=== PATIENT | female | born 1955 | race Caucasian/White ===

== ENCOUNTER 2018-03-02 19:31 | Emergency (ER) | payer MEDICARE, SELFPAY ==
[2018-03-02] VITALS (7 sets, daily range): BP systolic 146–176; BP diastolic 79–99; PULSE 84–108; RESP 16–22; TEMP 37.4; O2SAT 96–99; BMI 31.7
[2018-03-02] MEDS: 0.9% Normal Saline 1,000 ML 999 ML IV (21:10)
--- NOTE | 2018-03-02 21:15 | RAD_ITS ---
STUDY: X-RAY CHEST REASON FOR EXAM: Female, 62 years old. Cold symptoms x2 weeks fever chills weakness TECHNIQUE: PA and lateral views of the chest. COMPARISON: January 13, 2015 chest x-ray FINDINGS: There are hazy linear markings in the lung bases greater than prior study. On the lateral view there is a visualized nodule measuring 1.2 x 1.3 cm. There is no demonstrated pleural abnormality. Normal size heart. Normal mediastinum and alanna. Normal visualized pulmonary arteries. Normal visualized aortic arch and descending thoracic aorta. There are diffuse degenerative changes of the visualized thoracic spine. Normal visualized ribs, clavicles, and shoulders. There is no demonstrated abnormality of the visualized soft tissue structures of the upper abdomen. RAD/Chest PA and Lateral IMPRESSION: Streaky linear densities in the lung bases suggesting possible scarring possibly atypical infiltrates. The lateral view shows a possible spiculated nodule measuring 1.2 x 1.3 cm. Not definitively seen on the PA view. Recommend CT scan of the chest. Electronically Signed: Jie Perera MD at 21:48 EDT Tel , Service support ,
[2018-03-02 21:17] LABS: Absolute Lymphocyte Count 1.78 X10^3/ul (0.83-4.51); Absolute Neutrophil Count 9.9 X10^3/uL (2.0-7.7); Basophil# 0.03 X10^3/uL; Basophil% 0.2 % (0-1); Eosinophil# 0.05 X10^3/uL; Eosinophils% 0.4 % (0-5); Hematocrit 39.9 % (37-47); Hemoglobin 13.1 g/dl (12.0-15.0); Lymphocyte # 1.78 X10^3/ul (4.0); Lymphocyte % 14.1 % (19-41); Mean Corp Hgb Conc 32.8 g/gl (32-36); Mean Corpuscular Hgb 27.9 pg (27.0-32.0); Mean Corpuscular Volume 85.1 fL (81-99); Mean Platelet Vol. 10.7 fl (6.2-12.0); Monocyte# 0.85 X10^3/uL; Monocyte% 6.8 % (0-10); Neutrophil # 9.86 X10^3/uL (2.7-7.7); Neutrophil % 78.3 % (47-70); Platelet Count 267 K/mm3 (150-450); RBC Distribution Width CV 13.6 % (11.6-14.6); Red Blood Count 4.69 M/mm3 (4.2-5.4); White Blood Count 12.6 K/mm3 (4.4-11.0)
[2018-03-02 21:19] LABS: POSITIVE COUNT NO; POSITIVE DIFFERENTIAL NO; POSITIVE MORPHOLOGY NO
[2018-03-02] MEDS: Ipratropium/Albuterol Sulfate 3 ML AMPUL.NEB INHALATION (21:35)
[2018-03-02 22:04] LABS: Anion Gap 10 (5-15); BUN 12 mg/dL (7-18); BUN/Creat Ratio 16.1 RATIO (10-20); Calcium,Total 8.8 mg/dL (8.5-10.1); Chloride 102 mmol/L (98-107); Creatinine, Serum 0.74 mg/dL (0.55-1.02); EST Glomerular Filtration Rate 83 mL/min (>60); Est Glom Filt Rate - Afr Amer 101 mL/min (>60); Estimated Creatinine Clearance 67.19 ml/min; Glucose 134 mg/dL (74-106); Potassium 4.4 mmol/L (3.5-5.1); Sodium Level 138 mmol/L (136-145)
--- NOTE | 2018-03-02 22:25 | CT_ITS ---
STUDY: CT CHEST WITHOUT CONTRAST REASON FOR EXAM: Female, 62 years old. Symptoms 2 weeks weakness fever chills RADIATION DOSAGE (If Supplied By Facility): CTDIvol = ( 14.43 ) mGy, DLP = ( 450.58 ) mGycm TECHNIQUE: Transaxial imaging was performed without the administration of intravenous contrast material. Multiplanar coronal and sagittal images were reformatted. Individualized dose optimization techniques were used for this CT. COMPARISON: Chest x-ray March 02, 2018 FINDINGS: Within the superior aspect of the right upper lobe there is a focal nodular density which may represent the density seen on the chest x-ray. It measures 1.2 x 0.7 cm. Within the anterior aspect of the right lower lobe there is a focal consolidation within air bronchogram. There is a calcified granuloma in the superior aspect of the left upper lobe. There are minimal groundglass opacities within the lung bases. There is no demonstrated pleural abnormality. There is borderline cardiac enlargement. There is a right side paratracheal lymph node measuring 7.0 mm. Is calcification in the left hilum compatible with old granulomatous disease. Normal unenhanced pulmonary arteries. Normal aorta arch and descending thoracic aorta. There are multi-level degenerative changes of the thoracic spine. There is calcification in the liver and spleen compatible with old granulomatous disease. There is a small hiatal hernia mild thickening of the wall of the esophagus in its entirety suggestive of esophagitis. CT/Chest without Contrast IMPRESSION: Findings are consistent with anterior segment right upper lobe pneumonia recommend follow to clearing. There is a nodule versus focus of inflammation in the mid aspect of the right upper lobe measuring 1.2 x 0.7 cm for which a follow-up will be warranted. Minimal ground glass opacity suggesting possible mild edema. Degenerative change thoracic spine. Suspicious for esophagitis. N.B. : The above information has been verbally conveyed by Jie Perera MD to Jaya Cat , Referring Physician, on 03/02/2018 23:37:05 (ET). Electronically Signed: Jei Perera MD at 23:34 EDT Tel , Service support , N.B. : The above information has been verbally conveyed by Jie Perera MD to Jaya Cat , Referring Physician, on 03/02/2018 23:37:05 (ET).
--- NOTE | 2018-03-02 23:50 | ED.DCSUM_ITS ---
- ER Visit Summary Date of Service: 03/02/18 Chief Complaint: Cough History of Present Illness: The patient is a [address] Sukumar Velazquez III. She reports that she has a cough began approximately 1 week ago. Is productive of a small amount of thick, dark, yellow sputum without blood. She had subjective fever and chills. She complains of sore throat is 6 out of 10 severity. She has had moderate shortness of breath and has been wheezing. Physical Examination: Vitals: Stable. Afebrile. General: Well-nourished and well-developed. Head: Normocephalic atraumatic. Neck: Supple, no lymphadenopathy. No JVD. Nontender. Cardiovascular: Regular rate and rhythm. No murmurs. Respiratory: No respiratory distress. Clear to auscultation bilaterally. Moderate tenderness palpation over the upper chest on the right which does reproduce her pain. Abdominal: Soft, nontender, nondistended, normal bowel sounds. No guarding, rebound, or peritoneal signs. Back: Nontender. Extremities: Nontender, no edema. Skin: Normal color, no rash. Neurologic: Alert and oriented ?3. Cranial nerves II through XII are intact. Normal strength and sensation. Psych: Normal affect. Test Results: CBC is marked for white count of 12.6 with 77 neutrophils and 14 lymphocytes. Chem-7 is more for glucose 134. Chest x-ray shows scarring versus infiltrates at the bases bilaterally. There is 1.2 x 1.3 cm spiculated nodule seen only on the lateral. Recommend CT chest. Clinical Impression(s) from Imaging Studies Chest CT 03/02/18 22:25 IMPRESSION: Findings are consistent with anterior segment right upper lobe pneumonia recommend follow to clearing. There is a nodule versus focus of inflammation in the mid aspect of the right upper lobe measuring 1.2 x 0.7 cm for which a follow-up will be warranted. Minimal ground glass opacity suggesting possible mild edema. Degenerative change thoracic spine. Suspicious for esophagitis. Emergency Department Course and Treatment: Patient was treated with albuterol aerosol. She is given Levaquin p.o. Treatment Plan: Patient be discharged on albuterol MDI. Placed on Levaquin for a week. Instructed follow-up Dr. Sukumar Velazquez III in 5-7 days for another exam. Return to the emergency department for any worsening symptoms. Disposition: To home in improved and stable condition. Impression: 1. Pneumonia, community-acquired. 2. Right upper lobe nodule 1.2 x 0.7 cm. This note was generated with [employer] dictation software. It may contain incorrect words, spelling, and punctuation that were not noted in review of the chart prior to signing ED Disposition - Plan for ED Patient: Chief Complaint: Cold Sx Instructions: ED Pneumonia Adult, ED Nodule Solitary Pulmonary Prescriptions: Albuterol Aerosols [Ventolin Aerosols] 2.5 mg INHALATION Q4H PRN #25 vial Levofloxacin [Levaquin] 750 mg PO DAILY #7 tablet Prednisone [Deltasone] 60 mg PO DAILY #15 tab Referrals: Sukumar Velazquez III, MD [Primary Care Provider] - 5-7 Days
[2018-03-03] MEDS: levoFLOXacin 750 MG Tablet PO (00:04)
[2018-03-03] MEDS: predniSONE 20 MG Tablet 60 MG PO (00:04)
[2018-03-03] MEDS: Albuterol 2.5 MG/3 ML VIAL.NEB. INHALATION (00:14)
[2018-03-03 00:15] VITALS: PULSE 94; RESP 18
== END 2018-03-03 00:31 | disposition home or self-care (01) ==
LOC: ED 21:15
PROVIDERS: Emergency Provider Emergency Medicine; Family Provider Family Medicine; PCP Family Medicine
DX: J18.9 Pneumonia, unspecified organism (principal); R91.1 Solitary pulmonary nodule; R06.2 Wheezing; Z87.820 Personal history of traumatic brain injury
CPT/HCPCS: 71046; 71250; 80048; 85025; 94640; 99284; J7030; A4216

== ENCOUNTER 2019-03-27 14:11 | Emergency (ER) | payer MEDICARE, SELFPAY ==
[2019-03-27 14:13] VITALS: BP 160/98; PULSE 85; RESP 16; TEMP 37.2; BMI 32.5
--- NOTE | 2019-03-27 14:33 | CT_ITS ---
STUDY: CT BRAIN WITHOUT CONTRAST REASON FOR EXAM: Female, 63 years old. Headache and swollen left eye. Prior head injury. RADIATION DOSAGE (If Supplied By Facility): CTDIvol = ( 4499 ) mGy, DLP = ( 914.22 ) mGycm TECHNIQUE: Transaxial CT imaging of the brain was performed without administration of intravenous contrast material. Individualized dose optimization techniques were used for this CT. COMPARISON: No relevant priors. FINDINGS: Normal soft tissue structures. There are chronic right facial fractures including the zygomatic arch, the anterior and posterolateral strauss of the right maxillary sinus, as well as lateral wall and floor of the right orbit. Metal fixation hardware noted along the inferolateral margin of the right maxillary sinus and along the frontozygomatic process. There is mild depression of the right orbital floor, and a band of soft tissue density extends through the lateral aspect of the right axillary sinus. Normal remaining paranasal sinuses. Normal size ventricles and extra-axial spaces for the patient's age. Normal white matter tracts of the cerebral hemispheres. Normal basal ganglia and thalami. Normal brainstem. Normal cerebellum. There is no intracranial hemorrhage. There are no findings of an acute ischemic infarction. CT/Brain/Head without Contrast IMPRESSION: Chronic right facial fractures, as described, with chronic mild depression of the right orbital floor. No acute intracranial pathology. Electronically Signed: Addy Cesar MD at 15:48 EDT , Service support ,
[2019-03-27] MEDS: Ondansetron 4 MG/2 ML Vial IV (14:50)
[2019-03-27] MEDS: Ketorolac 30 MG/ML Syringe IV (14:50)
[2019-03-27] MEDS: 0.9% Normal Saline 1,000 ML 150 ML IV (14:50)
[2019-03-27] MEDS: MethylPREDNISolone 125 MG/2 ML Vial IV (14:50)
[2019-03-27 15:02] LABS: Absolute Lymphocyte Count 0.99 X10^3/ul (0.83-4.51); Absolute Neutrophil Count 5.4 X10^3/uL (2.0-7.7); Basophil# 0.02 X10^3/uL; Basophil% 0.3 % (0-1); Eosinophil# 0.03 X10^3/uL; Eosinophils% 0.4 % (0-5); Hematocrit 41.4 % (37-47); Hemoglobin 14.3 g/dl (12.0-15.0); Lymphocyte # 0.99 X10^3/ul (4.0); Lymphocyte % 13.9 % (19-41); Mean Corp Hgb Conc 34.5 g/gl (32-36); Mean Platelet Vol. 10.4 fl (6.2-12.0); Monocyte# 0.71 X10^3/uL; Neutrophil # 5.36 X10^3/uL (2.7-7.7); Neutrophil % 75.3 % (47-70); POSITIVE COUNT NO; POSITIVE DIFFERENTIAL NO; Platelet Count 224 K/mm3 (150-450); RBC Distribution Width SD 40.9 fl (35.1-43.9); Red Blood Count 5.11 M/mm3 (4.2-5.4); White Blood Count 7.1 K/mm3 (4.4-11.0)
[2019-03-27 15:03] LABS: POSITIVE MORPHOLOGY NO
[2019-03-27] MEDS: Acyclovir 800 MG Tablet PO (15:09)
[2019-03-27 15:15] LABS: Anion Gap 7 (5-15); BUN 10 mg/dL (7-18); BUN/Creat Ratio 11.6 RATIO (10-20); Calcium,Total 9.1 mg/dL (8.5-10.1); Chloride 97 mmol/L (98-107); Creatinine, Serum 0.86 mg/dL (0.55-1.02); EST Glomerular Filtration Rate 70 mL/min (>60); Est Glom Filt Rate - Afr Amer 85 mL/min (>60); Estimated Creatinine Clearance 57.07 ml/min; Glucose 144 mg/dL (74-106); Potassium 3.6 mmol/L (3.5-5.1); Sodium Level 131 mmol/L (136-145)
--- NOTE | 2019-03-27 16:12 | ED.DCSUM_ITS ---
- ER Visit Summary Date of Service: 03/27/19 Chief Complaint: Headache, nausea and vomiting History of Present Illness: The patient is a 63 F with headache over the top of her head for the last 3 or 4 days. She noted her left eyelid to be swollen. She is a history of a TBI but states she does not get frequent headaches. She denies any recent head injury. She does report chronic dizziness from her prior TBI. Physical Examination: Blood pressure is 160/98, otherwise vitals normal. Patient seen on the side of bed no acute distress. She is nontoxic appearing. Head and neck examination was left upper eyelid edema. There is no conjunctival injection. Left TM is clear. There is a rash noted to her left forehead and into the hairline consistent with shingles. Heart is regular rate and rhythm. Lung sounds are clear. Abdomen is soft and nontender. Test Results: CT head reveals chronic changes only. CBC is normal. Chemistry studies reveal a sodium of 131 and chloride 97. Glucose is 144. Emergency Department Course and Treatment: Patient was given Toradol, Zofran, Solu-Medrol, and acyclovir. On repeat evaluation patient is resting comfortably. She will be treated with prednisone, acyclovir, Thayer, Zofran. She is to follow-up with her primary care physician within 1 week. Treatment Plan: [] Disposition: Discharge Impression: 1. Shingles left V1 distribution 2. Vomiting, improved This note was generated with [employer] dictation software. It may contain incorrect words, spelling, and punctuation that were not noted in review of the chart prior to signing ED Disposition - Plan for ED Patient: Disposition: Home or Assisted Living Instructions: ED Shingles Prescriptions: Hydrocodone Bitart/Apap 5-325 [Thayer 5MG-325MG] 1 tablet PO Q6H PRN PRN 3 Days #10 tablet PRN Reason: Pain Ondansetron [Zofran Odt] 4 mg PO Q8H PRN PRN #10 tablet PRN Reason: Nausea Acyclovir [Zovirax] 800 mg PO 5X/DAY #25 tablet Prednisone 10 mg PO UD #33 tablet Referrals: Sukumar Velazquez III, MD [Primary Care Provider] - 1 Week
[2019-03-27 16:33] VITALS: BP 173/90; PULSE 73; RESP 16; O2SAT 94
--- NOTE | 2019-03-27 16:33 | ED.RN ---
IV DC'ED, CATHETER INTACT, SMALL GAUZE DRESSING PLACED. DISCHARGE INSTRUCTIONS GIVEN TO AND REVIEWED WITH PATIENT, PATIENT DENIES QUESTIONS OR CONCERNS AND VOICES UNDERSTANDING OF DISCHARGE INSTRUCTIONS. PT AMBULATES OUT OF ROOM WITHOUT DIFFICULTY.
== END 2019-03-27 16:39 | disposition home or self-care (01) ==
PROVIDERS: Emergency Provider Emergency Medicine; Family Provider Family Medicine; PCP Family Medicine
DX: B02.9 Zoster without complications (principal); I10 Essential (primary) hypertension; R11.2 Nausea with vomiting, unspecified; Z79.899 Other long term (current) drug therapy; Z87.820 Personal history of traumatic brain injury
CPT/HCPCS: 70450; 80048; 85025; 96361; 96374; 96375; 99283; J7030; J2405

== ENCOUNTER → 2021-07-15 | Outpatient (CLI) | payer MEDICARE, SELFPAY | END | disposition home or self-care (01) | PROVIDERS: PCP Family Medicine; Referring Provider Physician Assistant; Visit Provider Physician Assistant | DX: Z20.822 Contact with and (suspected) exposure to COVID-19 (principal) | CPT/HCPCS: 87635; U0005; U0003 ==

== ENCOUNTER 2022-09-24 21:33 | Emergency (ER) | payer MEDICARE, SELFPAY ==
[2022-09-24 21:34] VITALS: BP 189/90; PULSE 89; RESP 18; TEMP 36.7; O2SAT 97; BMI 34.3
--- NOTE | 2022-09-24 23:23 | ED.VIS.BACK ---
HPI History of Present Illness Chief Complaint: Back Detail of Chief Complaint: Back pain that started about a week and a half ago Informant: patient Onset/Context/Timing Current Severity: 02/25 Narrative Narrative: Patient presents with back pain*about a week and a half ago. Patient states that she thinks she overdid it doing some cleaning and being bent over. She does have history of some arthritis. Patient states the pain became more sharp today intermittently with certain movements. She was advised to be evaluated. She denies any pain down her legs. She denies numbness or tingling in her legs. She denies loss of bowel or bladder function. She denies weakness in extremities. She denies direct trauma. Patient does have a remote history of a herniated disc at L4 525 years ago. [facility] Medical History (Updated 09/24/22 @ 23:[address] Karmen Arora, ) Dizziness Herniated disc HTN (hypertension) TBI (traumatic brain injury) Home Medications acyclovir 800 mg tablet 800 mg PO 5X/DAY ##25 03/27/19 [Rx Last Taken Unknown] lisinopril 5 mg tablet (Zestril) 5 mg PO DAILY 03/27/19 [History Last Taken 03/22/19] ondansetron 4 mg disintegrating tablet 4 mg PO Q8H PRN PRN Nausea #10 tabs 03/27/19 [Rx Last Taken Unknown] prednisone 10 mg tablet 10 mg PO UD #33 tabs 03/27/19 [Rx Last Taken Unknown] cyclobenzaprine 10 mg tablet 10 mg PO TID PRN Muscle Spasm #20 TABLETS 09/24/22 [Rx Last Taken Unknown] Allergy/AdvReac Type Severity Reaction Status Date / Time No Known Allergies Allergy Verified 09/24/22 21:37 Social History Smoking Status: Never smoker ROS ROS ED Review of Systems ROS Unobtainable: other Constitutional Constitutional ED: Reports lethargy; Denies chills, fever(s), sweats or weight loss Eyes Eyes: Denies blurry vision, change in vision or diplopia ENT ENT ED: Denies rhinorrhea or sore throat Cardiovascular Cardiovascular: Denies chest pain, orthopnea or racing heartbeat Respiratory/Chest Respiratory/Chest: Denies cough, dyspnea, dyspnea on exertion, orthopnea or sputum Gastrointestinal Gastrointestinal: Denies abdominal pain, diarrhea, nausea or vomiting Genitourinary Genitourinary ED: Denies dysuria, hematuria or urinary frequency Musculoskeletal Musculoskeletal: Reports back pain; Denies arthralgias, myalgias or neck pain Integumentary Denies abscess, Abrasions or rash Neurologic Neurologic: Denies headache(s) or weakness Psychiatric Psychiatric: Denies anxiety, depression or suicidal thoughts Endocrine Endocrinology: Denies polydipsia, polyphagia or polyuria Hematologic/Lymphatic Hematologic/Lymphatic: Denies easy bleeding, easy bruising or lymphadenopathy Allergic/Immunologic Allergic/Immunologic ED: Denies mouth swelling, tongue swelling or urticaria EXAM Physical Exam Const Vital Signs: 09/24/22 21:34 Temperature 98.1 F Temperature Source Temporal Pulse Rate 89 Respiratory Rate 18 Blood Pressure 189/90 H Blood Pressure Mean 123 Pulse Ox 97 Oxygen Delivery Method Room Air Positive well nourished and well developed General Appearance ED: well developed and NAD HEENT Reports TM's clear and moist mucous membranes normocephalic and atraumatic; Negative for trauma or tenderness Tympanic Membrane ED: Yes TM's clear Eyes PERRL and EOMs intact bilaterally General Eye ED: Negative for pale conjunctiva or scleral icterus Neck no lymphadenopathy, supple and no JVD General: Negative for tenderness Chest Wall inspection of chest normal and palpation of chest normal Chest: Negative for tenderness Resp normal respiratory effort and clear to auscultation bilaterally Effort and Inspection: Negative for respiratory distress or pain with movement Auscultation: Negative for rhonchi, wheezes or diminished lung sounds Cardio regular rate, regular rhythm, S1 normal heart sound, S2 normal heart sound and no murmurs Peripheral Pulses: pulses 2+ throughout GI normal to inspection, nondistended, normoactive bowel sounds, soft to palpation, non-tender, non-distended and no masses Back/Spine no CVA tenderness and no thoracic nor lumbar tenderness Back/Spine Narrative: Patient has tenderness palpation over the left lumbar paraspinal musculature that seems to reproduce her pain. No masses palpated. She has no tenderness over the thoracic or lumbar spine. She has negative straight leg raises. Deep tendon reflexes are plus 2 out of 4 bilaterally at the patella Achilles. Patient has normal L5 extension bilaterally. Neurovascularly intact. Extremity normal to inspection General Extremety ED: Negative for edema General Extremity: Negative for edema Neuro oriented x3, CN's II-XII intact bilaterally, no sensory deficits noted and gait normal Sensorium / Orientation: awake, alert, oriented to person, oriented to place and oriented to time Motor Exam: strength 5/5 throughout and strength abnormal Psych mental status grossly normal Skin no rashes or lesions noted and no wounds MDM MDM MDM Narrative Medical decision making narrative: Patient with atraumatic back pain. I do not feel any imaging is indicated and she is comfortable with this. I suspect more likely muscle spasm. Patient has a prescription for naproxen at home and she will take that and does not anything stronger for pain. I will write her for Flexeril. Patient to follow-up with her primary care physician within next 5 to 7 days. She is advised to return if worsening pain, weakness in extremities, change in bowel or bladder function, or condition should worsen anyway. There are no red flag symptoms of cauda equina. Discharge Plan Triage Chief Complaint: Back ED Provider: Karmen Aroar Dx/Rx/DC Orders Clinical Impression: Lumbar strain, Back pain Instructions: ED Back Spasm, No Trauma Prescriptions: New cyclobenzaprine [cyclobenzaprine] 10 mg tablet 10 mg PO TID PRN (Reason: Muscle Spasm) Qty: 20 0RF No Action lisinopril [Zestril] 5 MG tablet 5 mg PO DAILY acyclovir 800 MG tablet 800 mg PO 5X/DAY Qty: 25 0RF prednisone 10 MG tablet 10 mg PO UD Qty: 33 0RF Rx Instructions: Take 4 tablets daily for 3 days, then 3 daily for 3 days, then 2 daily for 3 days, then 1 a day for 3 days then 1 QOD for 3 doses. ondansetron 4 MG tablet 4 mg PO Q8H PRN PRN (Reason: Nausea) Qty: 10 0RF Primary Care Provider: Dandre Myers Referrals: Dandre Myers MD [Primary Care Provider] - 5-7 Days Disposition Disposition: Home, Self Care
[2022-09-24] MEDS: cycloBENZAPRine HCl 10 MG Tablet PO (23:32)
== END 2022-09-24 23:34 | disposition home or self-care (01) ==
PROVIDERS: Emergency Provider Emergency Medicine; PCP Family Medicine; Visit Provider Emergency Medicine
DX: S39.012A Strain of muscle, fascia and tendon of lower back, initial encounter (principal); I10 Essential (primary) hypertension; Z87.820 Personal history of traumatic brain injury; Z79.899 Other long term (current) drug therapy
CPT/HCPCS: 99283

== ENCOUNTER 2023-10-09 23:14 | Emergency (ER) | payer MEDICARE, SELFPAY ==
--- NOTE | 2023-10-09 00:12 | RAD_ITS ---
INDICATION: Cough EXAMINATION/TECHNIQUE: X-RAY - XR Chest 2 Views COMPARISON: CT ChestMay 2017 FINDINGS: LINES/DEVICES: None. LUNGS: No consolidation, edema or effusion. No pneumothorax. Calcified granuloma in the left upper lobe. MEDIASTINUM AND CARDIOVASCULAR STRUCTURES: Cardiac silhouette not enlarged. Central airways and mediastinal contour are unremarkable. BONES AND SOFT TISSUES: Unremarkable. RAD/Chest PA and Lateral IMPRESSION: No radiographic evidence of acute cardiopulmonary disease. Electronically Signed: Mary Mckeon MD at 0:57 EST ,
[2023-10-09 23:15] VITALS: BP 190/87; PULSE 89; RESP 16; TEMP 36.6; O2SAT 100; BMI 34.3
--- NOTE | 2023-10-09 23:36 | EX.ED.VIS.UR ---
HPI HPI - URI History of Present Illness Chief Complaint: Cough Informant: patient Onset/Context/Timing Onset: Days (4) Context: Gradual Onset Timing: Continuous Quality: Tightness Location: Right chest Worsened by: - (Nothing) Relieved by: - (Nothing) Associated Symptoms Associated Symptoms: Positive for Nasal Congestion, Headache, Shortness of Breath, Chest Pain and Productive Cough (Clear sputum); Negative for Sinus Pressure, Myalgias, Nausea, Vomiting, Diarrhea, Nonproductive cough or Hemoptysis Narrative Narrative: Patient presents with cough and congestion that has been getting worse over the last 4 days. Patient states she has some tightness in her right upper chest. Patient states nothing makes it better nothing makes it worse. Patient admits to some nasal congestion headache. Patient states she is coughing up some clear sputum. Patient states she will feel short of breath at times. Patient states she was diagnosed with COVID-19 last month. Patient states she never got over it. Patient denies any fevers or chills. Patient denies any nausea or vomiting. ROS [facility] ED Constitutional Constitutional ED: Denies chills or fever(s) Eyes Eyes: Denies blurry vision or change in vision ENT ENT ED: Reports rhinorrhea; Denies sore throat Cardiovascular Cardiovascular: Reports chest pain; Denies palpitations Respiratory/Chest Respiratory/Chest: Reports cough, dyspnea and sputum Gastrointestinal Gastrointestinal: Denies nausea or vomiting Genitourinary Genitourinary ED: Denies dysuria or hematuria Musculoskeletal Musculoskeletal: Reports back pain and neck pain Integumentary Denies abscess or rash Neurologic Neurologic: Reports headache(s); Denies weakness Allergic/Immunologic Allergic/Immunologic ED: Denies mouth swelling or urticaria [facility] Medical History (Updated 10/10/23 @ 01:[address] Blayne Fernandes, DO) Dizziness Herniated disc HTN (hypertension) TBI (traumatic brain injury) Home Medications acyclovir 800 mg tablet 800 mg PO 5X/DAY #25 TABLETS 03/27/19 [Rx Last Taken Unknown] lisinopril 5 mg tablet (Zestril) 5 mg PO DAILY 03/27/19 [History Last Taken 03/22/19] ondansetron 4 mg disintegrating tablet 4 mg PO Q8H PRN PRN Nausea #10 tabs 03/27/19 [Rx Last Taken Unknown] prednisone 10 mg tablet 10 mg PO UD #33 tabs 03/27/19 [Rx Last Taken Unknown] cyclobenzaprine 10 mg tablet 10 mg PO TID PRN Muscle Spasm #20 TABLETS 09/24/22 [Rx Last Taken Unknown] benzonatate 200 mg capsule 200 mg PO TID PRN cough #14 caps 08/23/23 [Rx Last Taken Unknown] dexamethasone 6 mg tablet 6 mg PO DAILY #5 tabs 08/23/23 [Rx Last Taken Unknown] Allergy/AdvReac Type Severity Reaction Status Date / Time No Known Allergies Allergy Verified 10/09/23 23:17 Surgical History (Updated 10/09/23 @ 23:[address] Blayne Fernandes, ) Hx of facial fracture repair Social History Smoking Status: Never smoker EXAM Physical Exam Const Vital Signs: 10/09/23 23:15 10/09/23 23:51 Temperature 97.8 F Temperature Source Temporal Pulse Rate 89 92 Respiratory Rate 16 18 Respiratory Pattern Normal Blood Pressure 190/87 H Blood Pressure Mean 121 Pulse Ox 100 Oxygen Delivery Method Room Air Positive well nourished and well developed General Appearance ED: well developed and NAD HEENT Reports moist mucous membranes Neck supple and no JVD Resp normal respiratory effort Auscultation: rhonchi right upper and right lower Cardio Rate: regular rate Rhythm: regular rhythm GI non-tender and non-distended Palpation: soft Neuro oriented x3, CN's II-XII intact bilaterally and no sensory deficits noted Sensorium / Orientation: alert Motor Exam: strength 5/5 throughout Psych mental status grossly normal MDM MDM MDM Narrative Medical decision making narrative: Differential diagnosis includes pneumonia, COVID-19 infection, influenza infection, viral bronchitis, and a viral upper respiratory infection. Chest x-ray will be obtained to assess for pneumonia pneumothorax. COVID-19 rapid antigen will be obtained to assess for COVID-19 infection. Influenza A and influenza B antigens will be obtained to assess for influenza infection. Lab Data Lab results narrative: COVID-19 rapid antigen was reviewed and was negative. Influenza A and influenza B antigens were reviewed and were negative. Radiography Chest X-Ray - ED: 1 View, Read by ED Physician, Read by Radiologist and No Acute Disease Diagnostic Testing: Clinical Impression(s) from Imaging Studies Chest X-Ray 10/09/23 00:12 IMPRESSION: No radiographic evidence of acute cardiopulmonary disease. Electronically Signed: Mary Mckeon MD at 0:57 EST , Portable 1 view chest x-ray was obtained. On my independent interpretation, lung argueta are clear. There is normal cardiac silhouette. Bony thorax is normal. There is no acute process noted. Radiologist also interpreted the x-ray and agrees. Treatment and Re-Evaluation Narrative: Patient was given a DuoNeb aerosol here. Patient was advised of her findings. Patient was advised that this is most likely a viral upper respiratory infection. Patient was instructed to drink plenty of fluids. Patient was instructed to take Tylenol or ibuprofen as needed for any aches or fevers. Patient was instructed to follow-up with her primary care physician in 5 to 7 days. Patient was instructed return if worse in any way. Patient understood and was agreeable with the plan. All questions were answered. Discharge Plan Triage Chief Complaint: Cough ED Provider: Blayne Fernandes Dx/Rx/DC Orders Clinical Impression: Viral upper respiratory tract infection Instructions: ED URI, Viral, No Abx (Adult) Prescriptions: No Action dexamethasone 6 mg tablet 6 mg PO DAILY Qty: 5 0RF benzonatate 200 mg capsule 200 mg PO TID PRN (Reason: cough) Qty: 14 0RF lisinopril [Zestril] 5 MG tablet 5 mg PO DAILY acyclovir 800 MG tablet 800 mg PO 5X/DAY Qty: 25 0RF prednisone 10 MG tablet 10 mg PO UD Qty: 33 0RF Rx Instructions: Take 4 tablets daily for 3 days, then 3 daily for 3 days, then 2 daily for 3 days, then 1 a day for 3 days then 1 QOD for 3 doses. ondansetron 4 MG tablet 4 mg PO Q8H PRN PRN (Reason: Nausea) Qty: 10 0RF cyclobenzaprine [cyclobenzaprine] 10 mg tablet 10 mg PO TID PRN (Reason: Muscle Spasm) Qty: 20 0RF Primary Care Provider: Dandre Myers Referrals: Dandre Myers MD [Primary Care Provider] - 5-7 Days Disposition Disposition: Home, Self Care
[2023-10-09 23:51] VITALS: PULSE 92; RESP 18
[2023-10-09] MEDS: Ipratropium/Albuterol Sulfate 3 ML AMPUL.NEB INHALATION (23:51)
[2023-10-10 01:32] VITALS: BP 156/115; PULSE 82; RESP 16; TEMP 37.2; O2SAT 98
== END 2023-10-10 01:36 | disposition home or self-care (01) ==
PROVIDERS: Emergency Provider Emergency Medicine; PCP Family Medicine; Visit Provider Emergency Medicine
DX: J06.9 Acute upper respiratory infection, unspecified (principal); R51.9 Headache, unspecified; R06.02 Shortness of breath; I10 Essential (primary) hypertension; Z11.52 Encounter for screening for COVID-19; Z79.899 Other long term (current) drug therapy
CPT/HCPCS: 71046; 87428; 94640; 99282; A4216

== ENCOUNTER 2025-05-23 15:08 | Emergency (ER) | payer MEDICARE, SELFPAY ==
[2025-05-23 15:10] VITALS: BP 139/70; PULSE 88; RESP 17; TEMP 36.4; O2SAT 98; BMI 32.5
--- NOTE | 2025-05-23 15:15 | ED.VIS.DENTA ---
HPI History of Present Illness Chief Complaint: Dental [facility] Medical History (Updated 10/18/23 @ 00:02 by Background Kat) Dizziness Herniated disc TBI (traumatic brain injury) HTN (hypertension) Home Medications ?Medication ?Instructions ?Recorded ?Last Taken ?Type acyclovir 800 mg tablet 800 mg PO 5X/DAY #25 TABLETS 03/27/19 Unknown Rx lisinopril 5 mg tablet (Zestril) 5 mg PO DAILY 03/27/19 03/22/19 History ondansetron 4 mg disintegrating 4 mg PO Q8H PRN PRN Nausea #10 tabs 03/27/19 Unknown Rx tablet prednisone 10 mg tablet 10 mg PO UD #33 tabs 03/27/19 Unknown Rx cyclobenzaprine 10 mg tablet 10 mg PO TID PRN Muscle Spasm #20 09/24/22 Unknown Rx TABLETS benzonatate 200 mg capsule 200 mg PO TID PRN cough #14 caps 08/23/23 Unknown Rx dexamethasone 6 mg tablet 6 mg PO DAILY #5 tabs 08/23/23 Unknown Rx amoxicillin 875 mg-potassium 1 tab PO BID 10 days #20 tabs 05/23/25 Unknown Rx clavulanate 125 mg tablet Allergy/AdvReac Type Severity Reaction Status Date / Time No Known Allergies Allergy Verified 05/23/25 15:11 Surgical History (Updated 10/09/23 @ 23:[address] Blayne Fernandes DO) Hx of facial fracture repair Social History Smoking Status: Never smoker EXAM Physical Exam Const Vital Signs: 05/23/25 15:10 Temperature 97.6 F L Temperature Source Oral Pulse Rate 88 Respiratory Rate 17 Blood Pressure 139/70 H Blood Pressure Mean 93 Pulse Ox 98 Oxygen Delivery Method Room Air [facility] MDM Narrative Medical decision making narrative: HISTORY OF PRESENT ILLNESS: Chief complaint: Dental pain 69-year-old female presents with concern for dental pain. Notes increasing pain this weekend approximate 3 days ago. Notes pain in the right upper gumline. Denies fever. Denies difficulty swallowing. Denies swelling underneath the jaw. Notes she has not seen a dentist. Denies vomiting or fever. Denies neck stiffness REVIEW OF SYSTEMS: Pertinent positives: Dental pain Pertinent negatives: As per HPI PHYSICAL EXAM: Nursing triage notes reviewed, Vital signs reviewed Constitutional: please see mdm HENT: MMM, poor dentition, dental erosions noted to the right upper jaw, erythema noted, no palpable fluctuance noted. No drainable abscess noted. Eyes: Pupils equal round and reactive to light, Extraocular muscles intact Neck: No stridor, no JVD, full neck ROM Lungs: Clear to auscultation, No wheezing or rales. No increased work of breathing, no conversational dyspnea, no accessory muscle use, no nasal flaring. No respiratory distress noted Heart: Regular rate and rhythm, No murmurs, No rubs and No gallops, 2+ distal pulses (radial, femoral, posterior tibial) in all extremities Skin: No rash or lesions noted MEDICAL DECISION MAKING: Chief Complaint: please see HPI External records reviewed: Evaluated for dental abscess in 2017 Factors affecting care: hypertension (chronic factors) Social determinants of health: none History obtained from others: none Consults: none [facility] Narrative: Patient was initially hemodynamically stable, afebrile and nontoxic-appearing. Exam consistent with poor dentition and dental erosion and likely dental infection. No drainable abscess was palpated. No evidence of Ron angina noted on initial exam. Patient was given prophylactic antibiotics and outpatient dental resources. Strict return precautions were discussed The patient and/or family, caregivers express understanding. The patient and/or family, caregivers agrees with the plan. Shared decision making: I will have a discussion with the patient and or visitors regarding risk/benefits of further testing or admission. They will be made aware of of the risk/benefits inherent in this decision they will be given the opportunity to voice understanding. Total critical care time today provided was at least 0 minutes. This excludes separately billable procedures. Critical care time (if documented) is secondary to the patient having high probability of clinically significant/life threatening deterioration in the patient's condition which required my urgent intervention. Impression: 1. Acute dental pain 2. Poor dentition Dispo: Discharge home This note was generated with [employer] dictation software. It may contain incorrect words, spelling, and punctuation that were not noted in review of the chart prior to signing. Discharge Plan Triage Chief Complaint: Dental ED Provider: John Castañeda Dx/Rx/DC Orders Instructions: ED Dental Pain Prescriptions: New amoxicillin-pot clavulanate 875-125 mg tablet 1 tab PO BID 10 Days Qty: 20 0RF No Action dexamethasone 6 mg tablet 6 mg PO DAILY Qty: 5 0RF benzonatate 200 mg capsule 200 mg PO TID PRN (Reason: cough) Qty: 14 0RF lisinopril [Zestril] 5 MG tablet 5 mg PO DAILY acyclovir 800 MG tablet 800 mg PO 5X/DAY Qty: 25 0RF prednisone 10 MG tablet 10 mg PO UD Qty: 33 0RF Rx Instructions: Take 4 tablets daily for 3 days, then 3 daily for 3 days, then 2 daily for 3 days, then 1 a day for 3 days then 1 QOD for 3 doses. ondansetron 4 MG tablet 4 mg PO Q8H PRN PRN (Reason: Nausea) Qty: 10 0RF cyclobenzaprine [cyclobenzaprine] 10 mg tablet 10 mg PO TID PRN (Reason: Muscle Spasm) Qty: 20 0RF Primary Care Provider: Dandre Myers Referrals: Dandre Myers MD [Primary Care Provider] - Activity Restrictions/Additional Instructions: Thank you for trusting us with your care today! Your exam is consistent with poor dentition and dental infection. This will require antimicrobial therapy Please take antibiotic as prescribed until course complete Please take Tylenol (2 pills, 650 mg), ibuprofen (2 pills, 400 mg) every 6 hours as needed for pain and fever control. Please return to the emergency department if your symptoms change or worsen. Please follow with local dentistry resources for further outpatient evaluation and managem You will likely Need an oral surgeon. You can follow-up at [facility]. The location is [address] [place] [address]. in [place], [place] please call [phone] and Print Language: Lao Disposition Disposition: Home, Self Care
[2025-05-23 15:43] VITALS: BP 139/70; PULSE 88; RESP 17; TEMP 36.4; O2SAT 98
== END 2025-05-23 15:44 | disposition home or self-care (01) ==
LOC: ED 15:30
PROVIDERS: Emergency Provider Emergency Medicine; PCP Family Medicine; Visit Provider Emergency Medicine
DX: K08.89 Other specified disorders of teeth and supporting structures (principal)
CPT/HCPCS: 99282